=== PATIENT | female | born 1995 | race Caucasian/White ===

== ENCOUNTER 2016-09-09 15:47 | Emergency (ER) | payer OTHER ==
[~2016-09-09 15:47] MED LIST: /BACIOPOI TOP; ASTE137S; BUPR15TA PO; COLA100C3 PO; IBUP80TA PO; MACR100C3 PO; PERC5TAB6 PO; PRENATAL GUMMIES PO; STRA40CA PO; TRAZ50TA2 PO; ZOLO100T PO; no home meds
[2016-09-09] MEDS ORDERED: TRAZ100T4 (16:04)
[2016-09-09] MEDS ORDERED: WELLTAB38 (16:04)
[2016-09-09] MEDS ORDERED: ADDE30CA (16:04)
[2016-09-09] MEDS ORDERED: CLON-404 (16:04)
[2016-09-09 20:05] VITALS: BP 145/72
== END 2016-09-09 20:08 | disposition home or self-care (01) ==
LOC: M ED 17:12
DX: F33.9 Major depressive disorder, recurrent, unspecified (principal); F41.9 Anxiety disorder, unspecified; F43.10 Post-traumatic stress disorder, unspecified; G43.909 Migraine, unspecified, not intractable, without status migrainosus; Z79.899 Other long term (current) drug therapy; Z91.030 Bee allergy status; Z91.018 Allergy to other foods; Z88.0 Allergy status to penicillin; Z87.891 Personal history of nicotine dependence

== ENCOUNTER → 2017-05-14 | Outpatient (REF) | payer OTHER, MEDICAID | LOC: M LAB REF 18:04 | DX: Z12.4 Encounter for screening for malignant neoplasm of cervix (principal); R87.613 High grade squamous intraepithelial lesion on cytologic smear of cervix (HGSIL) | CPT/HCPCS: 88142 ==

== ENCOUNTER → 2017-06-04 | Outpatient (REF) | payer OTHER, MEDICAID | LOC: M LAB REF 18:32 | DX: N87.1 Moderate cervical dysplasia (principal) | CPT/HCPCS: 88304 ==

== ENCOUNTER 2017-09-10 14:29 | Emergency (ER) | payer OTHER, MEDICAID ==
[2017-09-10] MEDS: predniSONE 20 MG TAB PO (14:52)
== END 2017-09-10 17:00 | disposition home or self-care (01) ==
LOC: M ED 14:29
DX: T63.441A Toxic effect of venom of bees, accidental (unintentional), initial encounter (principal); R20.9 Unspecified disturbances of skin sensation; F41.0 Panic disorder [episodic paroxysmal anxiety]; Z88.0 Allergy status to penicillin; Z91.018 Allergy to other foods; Z91.030 Bee allergy status; Z79.899 Other long term (current) drug therapy
CPT/HCPCS: 99284

== ENCOUNTER 2018-02-06 21:17 | Emergency (ER) | payer OTHER, MEDICAID ==
[2018-02-06] MEDS: IBUPROFEN 800 MG TAB PO (23:00)
== END 2018-02-06 23:10 | disposition home or self-care (01) ==
LOC: M ED 21:17
DX: S93.402A Sprain of unspecified ligament of left ankle, initial encounter (principal); X50.9XXA Other and unspecified overexertion or strenuous movements or postures, initial encounter; Y92.009 Unspecified place in unspecified non-institutional (private) residence as the place of occurrence of the external cause; Z91.030 Bee allergy status; Z88.0 Allergy status to penicillin; Z91.018 Allergy to other foods; Z79.899 Other long term (current) drug therapy
CPT/HCPCS: 73610

== ENCOUNTER 2018-03-09 16:08 | Inpatient (IN) | payer OTHER ==
[2018-03-09 17:25] LABS: HEMATOCRIT 42.3 % (36.0-47.0); HEMOGLOBIN 14.3 g/dl (12.0-15.5); MEAN CORPUSCULAR HEMOGLOBIN 30.7 pg (27.0-33.0); MEAN CORPUSCULAR HGB CONC 33.8 g/dl (32.0-36.5); MEAN CORPUSCULAR VOLUME 90.8 fl (80.0-96.0); PLATELET COUNT, AUTOMATED 404 10^3/uL (150-450); RED BLOOD COUNT 4.66 10^6/uL (4.00-5.40); RED CELL DISTRIBUTION WIDTH 12.6 % (11.5-14.5); WHITE BLOOD COUNT 10.7 10^3/uL (4.0-10.0)
[2018-03-09 17:36] LABS: CONTROL LINE HCG INT CTR LINE PRESENT; HCG, SERUM QUALITATIVE NEGATIVE (NEGATIVE)
[2018-03-09] MEDS: NICOTINE 21MG/24HR 1 EA TRANSDERMAL TD (18:00)
[2018-03-09 18:34] LABS: AMPHETAMINES LEVEL URINE NEGATIVE (NEGATIVE); BARBITURATES URINE NEGATIVE (NEGATIVE); BENZODIAZEPINES URINE NEGATIVE (NEGATIVE); CANNABINOIDS URINE POSITIVE (NEGATIVE); COCAINE METABOLITE URINE NEGATIVE (NEGATIVE); METHADONE URINE NEGATIVE (NEGATIVE); OPIATES URINE NEGATIVE (NEGATIVE); PHENCYCLIDINE URINE NEGATIVE (NEGATIVE)
[2018-03-09 18:56] LABS: ACETAMINOPHEN LEVEL < 2.0 UG/ML (10.0-30.0); ALBUMIN 3.5 GM/DL (3.2-5.2); ALBUMIN/GLOBULIN RATIO 0.97 (1.00-1.93); ALKALINE PHOSPHATASE 97 U/L (45-117); ALT/SGPT 30 U/L (12-78); ANION GAP 8 MEQ/L (8-16); AST/SGOT 18 U/L (7-37); BILIRUBIN,DIRECT < 0.1 MG/DL (0.0-0.2); BILIRUBIN,TOTAL 0.2 MG/DL (0.2-1.0); BLOOD UREA NITROGEN 6 MG/DL (7-18); CALCIUM LEVEL 9.2 MG/DL (8.5-10.1); CARBON DIOXIDE LEVEL 21 MEQ/L (21-32); CHLORIDE LEVEL 111 MEQ/L (98-107); CREATININE FOR GFR 0.84 MG/DL (0.55-1.30); ETHYL ALCOHOL (ETHANOL) < 0.003 % (0.000-0.010); GLOMERULAR FILTRATION RATE > 60.0 (>60); GLUCOSE, FASTING 83 MG/DL (70-100); POTASSIUM SERUM 4.2 MEQ/L (3.5-5.1); SALICYLATE LEVEL < 1.7 MG/DL (5.0-30.0); SODIUM LEVEL 140 MEQ/L (136-145); TOTAL PROTEIN 7.1 GM/DL (6.4-8.2)
[2018-03-09] MEDS ORDERED: MOM 30ML SUSPENSION UDC PO (19:45)
[2018-03-09] MEDS ORDERED: MAALOX 30 ML SUSP *UDC PO (19:45)
[2018-03-09] MEDS: traZODone 50 MG TAB PO (22:16)
[2018-03-09] MEDS: hydrOXYzine 50 MG TAB PO (22:16)
[2018-03-10] MEDS: ACETAMINOPHEN TAB 650MG DOSE (2X325MG) PO (08:39)
[2018-03-10] MEDS: NICOTINE 21MG/24HR 1 EA TRANSDERMAL TD (08:40)
[2018-03-10] MEDS ORDERED: hydrOXYzine 25 MG TAB PO (11:00)
[2018-03-10] MEDS: ZIPRASIDONE 20MG CAPSULE (GEODON) PO ×2 (11:00→20:55)
[2018-03-10] MEDS: cloNIDine 0.2 MG TAB PO ×2 (11:01→20:53)
[2018-03-10] MEDS: hydrOXYzine 50 MG TAB PO ×2 (11:47→23:33)
[2018-03-10] MEDS: traZODone 50 MG TAB PO (20:55)
[2018-03-11] MEDS: cloNIDine 0.2 MG TAB PO (08:27)
[2018-03-11] MEDS: ZIPRASIDONE 20MG CAPSULE (GEODON) PO ×2 (08:28→20:04)
[2018-03-11] MEDS: NICOTINE 21MG/24HR 1 EA TRANSDERMAL TD (08:29)
[2018-03-11] MEDS: INFLUENZA QUADRIVALENT PF VACCINE 0.5ML SYRINGE (90686) IM (08:31)
[2018-03-11 08:58] LABS: HEMATOCRIT 44.2 % (36.0-47.0); HEMOGLOBIN 14.9 g/dl (12.0-15.5); MEAN CORPUSCULAR HEMOGLOBIN 30.6 pg (27.0-33.0); MEAN CORPUSCULAR HGB CONC 33.7 g/dl (32.0-36.5); MEAN CORPUSCULAR VOLUME 90.8 fl (80.0-96.0); PLATELET COUNT, AUTOMATED 426 10^3/uL (150-450); RED BLOOD COUNT 4.87 10^6/uL (4.00-5.40); RED CELL DISTRIBUTION WIDTH 12.9 % (11.5-14.5); WHITE BLOOD COUNT 10.7 10^3/uL (4.0-10.0)
[2018-03-11] MEDS ORDERED: LOPERAMIDE 2 MG CAP PO (16:45)
[2018-03-11] MEDS: traZODone 50 MG TAB PO (20:04)
[2018-03-11] MEDS: IBUPROFEN 600 MG TAB PO (21:15)
[2018-03-12] MEDS: IBUPROFEN 600 MG TAB PO ×2 (06:12→14:39)
[2018-03-12] MEDS: NICOTINE 21MG/24HR 1 EA TRANSDERMAL TD (09:07)
[2018-03-12] MEDS: ZIPRASIDONE 20MG CAPSULE (GEODON) PO ×2 (09:07→21:10)
[2018-03-12] MEDS: traZODone 50 MG TAB PO (21:09)
[2018-03-12] MEDS: hydrOXYzine 50 MG TAB PO (23:27)
[2018-03-13] MEDS: NICOTINE 21MG/24HR 1 EA TRANSDERMAL TD (08:17)
[2018-03-13] MEDS: ZIPRASIDONE 20MG CAPSULE (GEODON) PO (08:18)
== END 2018-03-13 13:30 | disposition home or self-care (01) | DRG 753 ==
LOC: M ED 16:08 → M ED INP 19:31 → M PSY 20:38
DX: F31.5 Bipolar disorder, current episode depressed, severe, with psychotic features (principal); E66.9 Obesity, unspecified; F41.9 Anxiety disorder, unspecified; F90.9 Attention-deficit hyperactivity disorder, unspecified type; Z91.5 Personal history of self-harm; F43.10 Post-traumatic stress disorder, unspecified; Z79.899 Other long term (current) drug therapy; Z87.442 Personal history of urinary calculi; R51 Headache; Z68.36 Body mass index [BMI] 36.0-36.9, adult; F17.210 Nicotine dependence, cigarettes, uncomplicated; D72.829 Elevated white blood cell count, unspecified; Z88.0 Allergy status to penicillin; Z91.018 Allergy to other foods; Z91.030 Bee allergy status

== ENCOUNTER → 2018-07-03 | Outpatient (REF) | payer OTHER, MEDICAID ==
[~2018-07-03] MED LIST changes: +ADDE10TA PO; +ADDE30CA3 PO; +CLON0.2T PO; +CLON0.3T; -COLA100C3 PO; +COLA100C5 PO; +DEPO150I IM; +GEOD60CA PO; +HYDR-3363 PO; -MACR100C3 PO; +MACR100C43 PO; +MEDR1VL IM; +PERC5TAB12 PO; -PERC5TAB6 PO; +TRAZ-163; +TRAZ150T90 PO; +TRAZ1TAB14; +TRAZ1TAB14 PO; +WELLTAB38; +ZIPR60CA11 PO
[2018-07-03 20:02] LABS: APPEARANCE, URINE CLEAR (CLEAR); BACTERIA, URINE AUTO 3+ (NEGATIVE); BASO # 0.1 10^3/uL (0.0-0.2); BASO % 0.6 % (0.0-1.0); BILIRUBIN, URINE AUTO NEGATIVE (NEGATIVE); BLOOD, URINE BLOOD NEGATIVE (NEGATIVE); COLOR, URINE YELLOW (YELLOW); EOS # 0.1 10^3/uL (0.0-0.50); GLUCOSE, URINE (UA) AUTO NEGATIVE (NEGATIVE); HEMATOCRIT 42.6 % (36.0-47.0); HEMOGLOBIN 14.4 g/dl (12.0-15.5); KETONE, URINE AUTO NEGATIVE (NEGATIVE); LEUKOCYTE ESTERASE, URINE AUTO NEGATIVE (NEGATIVE); LYMPH # 3.2 10^3/uL (1.5-6.5); LYMPH % 29.7 % (24.0-44.0); MEAN CORPUSCULAR HEMOGLOBIN 31.1 pg (27.0-33.0); MEAN CORPUSCULAR HGB CONC 33.8 g/dl (32.0-36.5); MONO # 0.9 10^3/uL (0.0-0.8); MUCUS, URINE SMALL (NEGATIVE); NEUTROPHILS # 6.6 10^3/uL (1.8-7.7); NEUTROPHILS % 60.4 % (36.0-66.0); NITRITE, URINE AUTO NEGATIVE (NEGATIVE); PLATELET COUNT, AUTOMATED 442 10^3/uL (150-450); PROTEIN, URINE AUTO NEGATIVE (NEGATIVE); RBC, URINE AUTO 0 /HPF (0-3); RED BLOOD COUNT 4.63 10^6/uL (4.00-5.40); SPECIFIC GRAVITY URINE AUTO 1.018 (1.002-1.035); SQUAMOUS EPITHELIAL CELL UR AU 2 /HPF (0-6); UROBILINOGEN, URINE AUTO 0.2 mg/dL (0.0-2.0); WBC, URINE AUTO 2 /HPF (0-3); WHITE BLOOD COUNT 10.9 10^3/uL (4.0-10.0)
[2018-07-03 20:16] LABS: ALBUMIN 3.8 GM/DL (3.2-5.2); ALT/SGPT 34 U/L (12-78); BILIRUBIN,TOTAL 0.3 MG/DL (0.2-1.0); BLOOD UREA NITROGEN 10 MG/DL (7-18); CALCIUM LEVEL 8.9 MG/DL (8.5-10.1); CARBON DIOXIDE LEVEL 23 MEQ/L (21-32); CHLORIDE LEVEL 106 MEQ/L (98-107); CHOLESTEROL LEVEL 214 MG/DL (<200); CHOLESTEROL RISK RATIO 4.755 (<5); FREE T4 1.15 NG/DL (0.76-1.46); GLOMERULAR FILTRATION RATE > 60.0 (>60); GLUCOSE, FASTING 84 MG/DL (70-100); HDL CHOLESTEROL 45 MG/DL (>40); LDL CHOLESTEROL 148 MG/DL (<100); NON-HDL-C 169 MG/DL; POTASSIUM SERUM 4.5 MEQ/L (3.5-5.1); SODIUM LEVEL 140 MEQ/L (136-145); TOTAL PROTEIN 7.8 GM/DL (6.4-8.2); TRIGLYCERIDES LEVEL 105 MG/DL (<150)
[2018-07-03 20:18] LABS: TOTAL 25(OH) VITAMIN D 32.2 NG/ML (30.0-100.0)
[2018-07-03 20:19] LABS: HEMOGLOBIN A1c 5.8 %
[2018-07-07 00:06] LABS: Lyme Disease IgG/IgM Antibodie <0.91 ISR (0.00-0.90); Lyme Disease IgM Ab Quantitati <0.80 index (0.00-0.79)
== END ==
LOC: M LAB REF 19:27
PROVIDERS: ATTEND Family Medicine
DX: E66.8 Other obesity (principal); Z00.01 Encounter for general adult medical examination with abnormal findings

== ENCOUNTER 2019-06-16 18:21 | Emergency (ER) | payer MEDICAID, OTHER ==
[~2019-06-16] VITALS: Ht 180.3 cm; Wt 127.3 kg
[~2019-06-16 18:21] MED LIST changes: -TRAZ-163; +TRAZ-257
[2019-06-16] MEDS ORDERED: FLUO20CA19 (18:47)
[2019-06-16] MEDS ORDERED: ACET1TAB55 PO (18:47)
[2019-06-16] MEDS ORDERED: AMPH1CAP5 (18:47)
[2019-06-16] MEDS ORDERED: ADDE30TA (18:47)
[2019-06-16 19:22] LABS: BASO # 0.1 10^3/uL (0.0-0.2); BASO % 0.4 % (0.0-1.0); HEMOGLOBIN 13.8 g/dl (12.0-15.5); LYMPH # 3.3 10^3/uL (1.5-5.0); LYMPH % 24.6 % (24.0-44.0); MEAN CORPUSCULAR HEMOGLOBIN 29.9 pg (27.0-33.0); MEAN CORPUSCULAR HGB CONC 32.9 g/dl (32.0-36.5); MEAN CORPUSCULAR VOLUME 90.9 fl (80.0-96.0); MONO % 7.5 % (0.0-5.0); NEUTROPHILS % 67.2 % (36.0-66.0); PLATELET COUNT, AUTOMATED 425 10^3/uL (150-450); RED BLOOD COUNT 4.62 10^6/uL (4.00-5.40); WHITE BLOOD COUNT 13.4 10^3/uL (4.0-10.0)
[2019-06-16] MEDS ORDERED: NS 1,000 ML IV ONE (19:45)
[2019-06-16 20:48] LABS: ACETAMINOPHEN LEVEL < 2.0 UG/ML (10.0-30.0)
[2019-06-16 20:54] LABS: AMPHETAMINES LEVEL URINE NEGATIVE (NEGATIVE); BARBITURATES URINE NEGATIVE (NEGATIVE); BENZODIAZEPINES URINE NEGATIVE (NEGATIVE); CANNABINOIDS URINE POSITIVE (NEGATIVE); COCAINE METABOLITE URINE NEGATIVE (NEGATIVE); METHADONE URINE NEGATIVE (NEGATIVE); OPIATES URINE NEGATIVE (NEGATIVE); PHENCYCLIDINE URINE NEGATIVE (NEGATIVE)
[2019-06-16 21:13] LABS: ALBUMIN 3.5 GM/DL (3.2-5.2); ALT/SGPT 45 U/L (12-78); BILIRUBIN,DIRECT 0.2 MG/DL (0.0-0.2); BILIRUBIN,TOTAL 0.5 MG/DL (0.2-1.0); BLOOD UREA NITROGEN 10 MG/DL (7-18); CALCIUM LEVEL 8.9 MG/DL (8.5-10.1); CARBON DIOXIDE LEVEL 21 MEQ/L (21-32); CHLORIDE LEVEL 110 MEQ/L (98-107); CPK CREATINE PHOSPHOKINASE 107 U/L (26-192); CREATININE FOR GFR 0.81 MG/DL (0.55-1.30); ETHYL ALCOHOL (ETHANOL) < 0.003 % (0.000-0.010); GLOMERULAR FILTRATION RATE > 60.0 (>60); GLUCOSE, FASTING 77 MG/DL (70-100); POTASSIUM SERUM 3.6 MEQ/L (3.5-5.1); SALICYLATE LEVEL < 1.7 MG/DL (5.0-30.0); SODIUM LEVEL 139 MEQ/L (136-145)
[2019-06-17] MEDS ORDERED: ADDE30TA PO (02:32)
[2019-06-17] MEDS ORDERED: ADDE30CA3 PO (02:32)
[2019-06-17] MEDS ORDERED: FLUO20CA19 PO (02:32)
[2019-06-17] MEDS ORDERED: HYDR-3363 PO (02:32)
[2019-06-17] MEDS ORDERED: ACET-907 PO (02:32)
[2019-06-17] MEDS ORDERED: TRAZ150T90 PO (02:33)
[2019-06-17 03:54] LABS: HCG, SERUM QUALITATIVE NEGATIVE (NEGATIVE)
[2019-06-17 07:46] VITALS: BP 118/68
--- NOTE | 2019-06-17 15:08 | ECGEPIP ---
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
== END 2019-06-17 07:54 ==
LOC: M ED 18:21
DX: T39.1X2A Poisoning by 4-Aminophenol derivatives, intentional self-harm, initial encounter (principal); T43.592A Poisoning by other antipsychotics and neuroleptics, intentional self-harm, initial encounter; Z91.5 Personal history of self-harm; Z63.32 Other absence of family member; F32.9 Major depressive disorder, single episode, unspecified; F17.200 Nicotine dependence, unspecified, uncomplicated; F12.10 Cannabis abuse, uncomplicated; Z79.899 Other long term (current) drug therapy; Z88.0 Allergy status to penicillin; Z91.030 Bee allergy status; Z91.018 Allergy to other foods
CPT/HCPCS: 36415; 80048; 80076; 80307; 82550; 84443; 84703; 85025; 93005; 93041; 94760; 96360; 96361; 99285; G0480

== ENCOUNTER 2019-08-19 10:40 | Emergency (ER) | payer MEDICAID, OTHER ==
[~2019-08-19] VITALS: Ht 180.3 cm; Wt 127.9 kg
[~2019-08-19 10:40] MED LIST changes: +ACET-907 PO; +ACET1TAB55 PO; +ADDE30TA; +ADDE30TA PO; +AMPH1CAP5; +FLUO20CA22; +FLUO20CA22 PO
[2019-08-19] MEDS ORDERED: IBUPROFEN 800 MG TAB PO ONE (11:15)
[2019-08-19] MEDS ORDERED: LIDOCAINE VISCOUS 2% SOLN 15ML UDC SSP ONE (11:15)
[2019-08-19] MEDS ORDERED: DIVA1TAB48 (11:17)
[2019-08-19] MEDS ORDERED: CYAN100050 (11:17)
[2019-08-19] MEDS ORDERED: BUPR300T92 (11:17)
[2019-08-19] MEDS ORDERED: VITA500T9 (11:17)
[2019-08-19] MEDS ORDERED: CALC1CAP31 (11:17)
[2019-08-19] MEDS ORDERED: MAGICMW SSP (11:51)
[2019-08-19 11:57] VITALS: BP 121/80
== END 2019-08-19 12:04 | disposition home or self-care (01) ==
LOC: M ED 10:40
DX: K13.70 Unspecified lesions of oral mucosa (principal); Z20.89 Contact with and (suspected) exposure to other communicable diseases; F90.9 Attention-deficit hyperactivity disorder, unspecified type; F43.10 Post-traumatic stress disorder, unspecified; F31.9 Bipolar disorder, unspecified; Z86.59 Personal history of other mental and behavioral disorders; Z87.820 Personal history of traumatic brain injury; F17.200 Nicotine dependence, unspecified, uncomplicated; F12.10 Cannabis abuse, uncomplicated; Z79.3 Long term (current) use of hormonal contraceptives; Z88.0 Allergy status to penicillin; Z91.018 Allergy to other foods; Z91.030 Bee allergy status

== ENCOUNTER → 2019-10-11 | Outpatient (REF) | payer OTHER, MEDICAID ==
[~2019-10-11] MED LIST changes: +BUPR300T92; +CALC1CAP31; +CYAN100050; +DIVA1TAB48; +MAGICMW SSP; +VITA500T9
[2019-10-11 16:59] LABS: BASO % 0.5 % (0.0-1.0); EOS # 0.1 10^3/uL (0.0-0.5); HEMATOCRIT 39.8 % (36.0-47.0); HEMOGLOBIN 13.3 g/dl (12.0-15.5); LYMPH # 2.2 10^3/uL (1.5-5.0); LYMPH % 26.6 % (24.0-44.0); MEAN CORPUSCULAR HEMOGLOBIN 30.4 pg (27.0-33.0); MEAN CORPUSCULAR HGB CONC 33.4 g/dl (32.0-36.5); MEAN CORPUSCULAR VOLUME 91.1 fl (80.0-96.0); MONO # 0.8 10^3/uL (0.0-0.8); MONO % 9.4 % (0.0-5.0); NEUTROPHILS # 5.2 10^3/uL (1.5-8.5); NEUTROPHILS % 62.1 % (36.0-66.0); PLATELET COUNT, AUTOMATED 369 10^3/uL (150-450); RED BLOOD COUNT 4.37 10^6/uL (4.00-5.40); WHITE BLOOD COUNT 8.4 10^3/uL (4.0-10.0)
[2019-10-11 17:13] LABS: ALBUMIN 3.7 GM/DL (3.2-5.2); ALT/SGPT 33 U/L (12-78); BILIRUBIN,TOTAL 0.6 MG/DL (0.2-1.0); BLOOD UREA NITROGEN 8 MG/DL (7-18); CALCIUM LEVEL 9.2 MG/DL (8.5-10.1); CARBON DIOXIDE LEVEL 22 MEQ/L (21-32); CHLORIDE LEVEL 110 MEQ/L (98-107); CHOLESTEROL LEVEL 163 MG/DL (<200); CHOLESTEROL RISK RATIO 4.179 (<5); CREATININE FOR GFR 0.79 MG/DL (0.55-1.30); FREE T4 1.25 NG/DL (0.76-1.46); GLOMERULAR FILTRATION RATE > 60.0 (>60); GLUCOSE, FASTING 92 MG/DL (70-100); HDL CHOLESTEROL 39 MG/DL (>40); LDL CHOLESTEROL 106 MG/DL (<100); NON-HDL-C 124 MG/DL; POTASSIUM SERUM 3.5 MEQ/L (3.5-5.1); SODIUM LEVEL 141 MEQ/L (136-145); TOTAL PROTEIN 7.8 GM/DL (6.4-8.2); TRIGLYCERIDES LEVEL 92 MG/DL (<150)
[2019-10-11 17:15] LABS: TOTAL 25(OH) VITAMIN D 47.3 NG/ML (30.0-100.0); VITAMIN B12 LEVEL 350 PG/ML
[2019-10-11 17:16] LABS: FOLATE 9.8 NG/ML
[2019-10-11 17:50] LABS: HEMOGLOBIN A1c 5.6 %
== END ==
LOC: M LAB REF 16:32
PROVIDERS: ATTEND Physician Assistant
DX: Z83.2 Family history of diseases of the blood and blood-forming organs and certain disorders involving the immune mechanism (principal); Z86.32 Personal history of gestational diabetes; Z30.013 Encounter for initial prescription of injectable contraceptive; E66.8 Other obesity

== ENCOUNTER → 2020-01-27 | Outpatient (REF) | payer OTHER, MEDICAID | LOC: M LAB REF 16:27 | PROVIDERS: ATTEND Physician Assistant | DX: Z12.4 Encounter for screening for malignant neoplasm of cervix (principal); R87.613 High grade squamous intraepithelial lesion on cytologic smear of cervix (HGSIL); Z87.42 Personal history of other diseases of the female genital tract ==

== ENCOUNTER 2020-02-23 18:50 | Emergency (ER) | payer MEDICAID, OTHER ==
[~2020-02-23] VITALS: Ht 180.3 cm; Wt 120.4 kg
[2020-02-23 19:52] LABS: HEMATOCRIT 38.7 % (36.0-47.0); HEMOGLOBIN 12.7 g/dl (12.0-15.5); MEAN CORPUSCULAR HGB CONC 32.8 g/dl (32.0-36.5); MEAN CORPUSCULAR VOLUME 91.5 fl (80.0-96.0); PLATELET COUNT, AUTOMATED 411 10^3/uL (150-450); RED BLOOD COUNT 4.23 10^6/uL (4.00-5.40); WHITE BLOOD COUNT 9.2 10^3/uL (4.0-10.0)
[2020-02-23 20:10] LABS: AMPHETAMINES LEVEL URINE NEGATIVE (NEGATIVE); BARBITURATES URINE NEGATIVE (NEGATIVE); BENZODIAZEPINES URINE NEGATIVE (NEGATIVE); CANNABINOIDS URINE POSITIVE (NEGATIVE); COCAINE METABOLITE URINE NEGATIVE (NEGATIVE); METHADONE URINE NEGATIVE (NEGATIVE); OPIATES URINE NEGATIVE (NEGATIVE); PHENCYCLIDINE URINE NEGATIVE (NEGATIVE)
[2020-02-23 21:27] LABS: ALBUMIN 3.5 GM/DL (3.2-5.2); ALT/SGPT 24 U/L (12-78); BILIRUBIN,DIRECT 0.1 MG/DL (0.0-0.2); BILIRUBIN,TOTAL 0.3 MG/DL (0.2-1.0); BLOOD UREA NITROGEN 12 MG/DL (7-18); CALCIUM LEVEL 8.9 MG/DL (8.5-10.1); CARBON DIOXIDE LEVEL 21 MEQ/L (21-32); CHLORIDE LEVEL 112 MEQ/L (98-107); CREATININE FOR GFR 0.84 MG/DL (0.55-1.30); ETHYL ALCOHOL (ETHANOL) < 0.003 % (0.000-0.010); GLOMERULAR FILTRATION RATE > 60.0 (>60); GLUCOSE, FASTING 92 MG/DL (70-100); SODIUM LEVEL 142 MEQ/L (136-145); THYROID STIMULATING HORMONE 0.535 uIU/ML (0.358-3.740); TOTAL PROTEIN 7.2 GM/DL (6.4-8.2); VALPROIC ACID (DEPAKOTE) < 3.0 UG/ML (50.0-100.0)
[2020-02-23 21:36] LABS: HCG, SERUM QUALITATIVE NEGATIVE (NEGATIVE)
[2020-02-23 22:15] VITALS: BP 115/66
== END 2020-02-23 22:17 | disposition home or self-care (01) ==
LOC: M ED 18:50
DX: F32.9 Major depressive disorder, single episode, unspecified (principal); Z91.5 Personal history of self-harm; F90.9 Attention-deficit hyperactivity disorder, unspecified type; F17.200 Nicotine dependence, unspecified, uncomplicated; Z79.899 Other long term (current) drug therapy; Z88.0 Allergy status to penicillin; Z91.030 Bee allergy status; Z91.018 Allergy to other foods
CPT/HCPCS: 80048; 80076; 80164; 80307; 84443; 84703; 85027; 99284; G0480